=== PATIENT | female | born 1985 | race Native Hawaiian/Other Pacific Islander ===

== ENCOUNTER 2018-08-02 01:03 | Emergency (ER) | payer OTHER ==
[2018-08-02 01:10] VITALS: O2SAT 100
[2018-08-02] MEDS ORDERED: Oxycodone/Acetaminophen 5/325 mg Tab PO ONE (01:54)
--- NOTE | 2018-08-02 01:57 | ED PDOC ---
HPI: Back Time Seen by Provider: 08/02/18 01:45 Chief Complaint (Nursing): Back Pain Chief Complaint (Provider): low back pain History Per: Patient History/Exam Limitations: no limitations Onset/Duration Of Symptoms: Hrs Current Symptoms Are (Timing): Still Present Exacerbating Factor(s): Turning, Movement, Sitting, Standing Additional Complaint(s): 32 y/o female history of lspine disc herniation(s) brought in by EMS for evaluation of acute on chronic flare up. Patient states she re-injured her back at the gym 2 weeks ago and has been taking Naproxen every morning but states a few hours ago she was on the toilet pushing to have a bowel movement and felt something "move" in her back, which worsened the pain. Associated radiation down left leg. Denies fever, nausea/vomiting, weakness of extremities, bowel/bladder incontinence, dysuria, hematuria. Past Medical History Reviewed: Historical Data, Nursing Documentation, Vital Signs Vital Signs: Last Vital Signs Temp 97.9 F 08/02/18 01:08 Pulse 85 08/02/18 01:08 Resp 17 08/02/18 01:08 BP 122/86 08/02/18 01:08 Pulse Ox 100 08/02/18 01:08 - Medical History PMH: Back Problems, Bipolar Disorder - Surgical History Surgical History: No Surg Hx - Family History Family History: States: No Known Family Hx - Home Medications Home Medications: Ambulatory Orders Medication Instructions Recorded Cyclobenzaprine [Cyclobenzaprine 10 mg PO BID PRN #14 tab 08/02/18 HCl] traMADol [Ultram] 50 mg PO Q8 PRN #12 tab 08/02/18 - Allergies Allergies/Adverse Reactions: Allergies Allergy/AdvReac Type Severity Reaction Status Date / Time No Known Allergies Allergy Verified 08/02/18 01:10 Review of Systems ROS Statement: Except As Marked, All Systems Reviewed And Found Negative Musculoskeletal: Positive for: Back Pain Physical Exam - Reviewed Nursing Documentation Reviewed: Yes Vital Signs Reviewed: Yes - Physical Exam Appears: Positive for: Well, Non-toxic, Uncomfortable Head Exam: Positive for: ATRAUMATIC, NORMAL INSPECTION, NORMOCEPHALIC Skin: Positive for: Normal Color Back: Positive for: Vertebral Tenderness (lower lspine; no bony deformity, edema, skin changes noted), Decreased ROM (secondary to pain), Muscle Spasm (left lspine paravertebral tenderness. Left gluteal tenderness). Negative for: L CVA Tenderness, R CVA Tenderness Extremity: Positive for: Normal ROM Neurologic/Psych: Positive for: Alert, Oriented (x3). Negative for: Motor/Sensory Deficits - ECG O2 Sat by Pulse Oximetry: 100 - Other Rad lspine xray X-Ray: Viewed By Me X-Ray Interpretation: no acute findings - Progress ED Course And Treament: -lspine xray -toradol IM -percocet PO -flexeril PO On re-eval patient resting comfortably on stretcher; states pain improved. Patient educated on findings, discharged with rx Flexeril, Tramadol Advised to continue Naproxen Warm compresses Follow up PMD within 2-3 days Return precautions given Disposition - Clinical Impression Clinical Impression: Low back pain, Sciatica - Patient ED Disposition Is Patient to be Admitted: No Counseled Patient/Family Regarding: Studies Performed, Diagnosis, Need For Followup, Rx Given - Disposition Referrals: [facility] [Outside] Disposition: Routine/Home Disposition Time: 04:24 Condition: IMPROVED Prescriptions: Cyclobenzaprine [Cyclobenzaprine HCl] 10 mg PO BID PRN #14 tab PRN Reason: Muscle Spasm traMADol [Ultram] 50 mg PO Q8 PRN #12 tab PRN Reason: Pain, Moderate (4-7) Instructions: Low Back Pain in Adults, Sciatica Forms: [employer] (Icelandic)
[2018-08-02] MEDS ORDERED: Oxycodone/Acetaminophen 5/325 mg Tab ONE (02:10)
[2018-08-02 04:29] VITALS: BP 118/73; PULSE 86; RESP 18; TEMP 98.9
--- NOTE | 2018-08-02 12:51 | RAD ---
Date of service: 08/02/2018 PROCEDURE: Radiographs of the Lumbar Spine. HISTORY: injury, h/o disc herniations COMPARISON: No prior. FINDINGS: BONES: Normal alignment. No listhesis. No fracture. DISC SPACES: Unremarkable. OTHER FINDINGS: None. IMPRESSION: Unremarkable radiographs of the lumbar spine.
== END 2018-08-02 04:57 | disposition home or self-care (01) ==
LOC: H.ER 01:03
DX: M54.5 Low back pain (principal); M54.32 Sciatica, left side
CPT/HCPCS: 72100; 81025; 96372; 99283; J1885

== ENCOUNTER 2018-08-03 22:56 | Emergency (ER) | payer OTHER ==
[2018-08-03] MEDS ORDERED: Naproxen 500 MG TAB PO STA (23:56)
[2018-08-04] MEDS ORDERED: Naproxen 500 MG TAB PO ONE (00:08)
--- NOTE | 2018-08-04 00:22 | ED PDOC ---
HPI: Neurologic - General Time Seen by Provider: 08/03/18 23:43 Chief Complaint (Nursing): Weakness/Neurological Deficit Chief Complaint (Provider): Weakness/Neurological Deficit Source: patient Exam Limitations: no limitations - History of Present Illness Timing/Duration: 24 hours Associated Symptoms: numbness in legs/feet (left leg), other (numbness to pelvis) Allergies/Adverse Reactions: Allergies No Known Allergies Allergy (Verified 08/03/18 23:22) Home Medications: Ambulatory Orders Cyclobenzaprine [Cyclobenzaprine HCl] 10 mg PO BID PRN #14 tab 08/02/18 traMADol [Ultram] 50 mg PO Q8 PRN #12 tab 08/02/18 Additional Complaint(s): 32 y/o female with history of herniated disc presents to ER for the second time in 24 hours for evaluation of worsening left leg and pelvic numbness. Patient reports she felt improved symptoms after medication she received here in the ED last night but worsened today. She states she is unable to have bowel movement but has no problem with urination. Patient is ambulatory on her own. She denies any recent trauma or infection. PMD: non provided Past Medical History Reviewed: Historical Data, Nursing Documentation, Vital Signs Vital Signs: Last Vital Signs Temp 98.3 F 08/03/18 23:22 Pulse 118 H 08/03/18 23:22 Resp 20 08/03/18 23:22 BP 116/88 08/03/18 23:22 Pulse Ox 97 08/03/18 23:22 - Medical History PMH: Back Problems, Bipolar Disorder - Surgical History Surgical History: No Surg Hx - Family History Family History: States: Unknown Family Hx - Home Medications Home Medications: Ambulatory Orders Medication Instructions Recorded Cyclobenzaprine [Cyclobenzaprine 10 mg PO BID PRN #14 tab 08/02/18 HCl] traMADol [Ultram] 50 mg PO Q8 PRN #12 tab 08/02/18 - Allergies Allergies/Adverse Reactions: Allergies Allergy/AdvReac Type Severity Reaction Status Date / Time No Known Allergies Allergy Verified 08/03/18 23:22 Review of Systems ROS Statement: Except As Marked, All Systems Reviewed And Found Negative Neurological: Positive for: Numbness (to left leg and pelvis). Negative for: Other (Recent trauma or infection) Physical Exam - Reviewed Nursing Documentation Reviewed: Yes Vital Signs Reviewed: Yes - Physical Exam Appears: Positive for: Non-toxic, No Acute Distress Head Exam: Positive for: ATRAUMATIC, NORMOCEPHALIC Skin: Positive for: Normal Color, Warm, Dry Neck: Positive for: Normal (no C-spine tenderness), Painless ROM, Supple Cardiovascular/Chest: Positive for: Regular Rate, Rhythm. Negative for: Murmur Respiratory: Positive for: Normal Breath Sounds. Negative for: Wheezing Gastrointestinal/Abdominal: Positive for: Normal Exam. Negative for: Tenderness Back: Positive for: Normal Inspection. Negative for: L CVA Tenderness, R CVA Tenderness, Other (Spine Tenderness) Neurologic/Psych: Positive for: Alert, Oriented (x3), Other (Mild weakness when standing on left leg. Full sensation of thighs and feet medially and laterally. No weakness on right leg with standing.) - ECG O2 Sat by Pulse Oximetry: 97 (RA) Pulse Ox Interpretation: Normal Medical Decision Making Medical Decision Making: Time: 2340 A/P: workup for worsening left leg and pelvic numbness --Image from yesterday shows no abnormality --CT of lumbar spine ordered --Flexeril and Naproxen for pain [id number] Findings: Straightening of the lumbar lordosis. There are diffuse spondylotic changes. Findings are demonstrated by disc space narrowing, osteophyte formation and degenerative endplate changes. Facet joint arthropathy is noted. No fracture or dislocation is seen. No aggressive bone lesion is noted. At L5-S1, mild diffuse disc bulge. Bilateral facet joint arthropathy. The spinal canal is not narrowed. Mild bilateral neural foramina narrowing. At L4-L5, moderate diffuse disc bulge. Superimposed left paracentral/posterolateral disc extrusion measuring 8.4 mm significant impinge ment on the thecal sac and exiting left L5 nerve root. Bilateral facet arthropathy and ligamentum flavum hypertrophy. The spinal canal is moderately narrowed. Moderate bilateral neural foramina narrowing. At L3-L4, moderate diffuse disc bulge. Superimposed broad-based central/left paracentral disc protrusion measuring 3.8 mm. Bilateral facet arthropathy and ligamentum flavum hypertrophy. The spinal canal and bilateral foramina narrowing. At L2-L3, mild diffuse disc bulge. The spinal canal is not narrowed. Mild bilateral neural foramina narrowing. At L1-L2, mild diffuse disc bulge. The spinal canal is not narrowed. Mild bilateral neural foramina narrowing. IMPRESSION: Spondylosis. Multilevel degenerative disc disease more prominent at L4-L5. 0416 CT reviewed and shows no significant abnormality. Patient reports improvement in symptoms and is medically stable for discharge. ----- Scribe Attestation: Documented by Shruti Ware, acting as a scribe for Viola Hatch MD. Provider Scribe Attestation: All medical record entries made by the Scribe were at my direction and personally dictated by me. I have reviewed the chart and agree that the record accurately reflects my personal performance of the history, physical exam, medical decision making, and the department course for this patient. I have also personally directed, reviewed, and agree with the discharge instructions and disposition. Disposition - Clinical Impression Clinical Impression: Spondylosis - Patient ED Disposition Is Patient to be Admitted: No - Disposition Disposition: Routine/Home Disposition Time: 04:16 Condition: STABLE Forms: [employer] (Bengali)
[2018-08-04 04:23] VITALS: BP 111/74; PULSE 91; RESP 18; O2SAT 100
[2018-08-04 04:56] VITALS: TEMP 98.2
--- NOTE | 2018-08-04 11:34 | CT ---
Date of service: 08/04/2018 PROCEDURE: CT Lumbar Spine without contrast HISTORY: Leg and pelvic weakness COMPARISON: Correlation made with concurrent radiographs of the lumbar spine TECHNIQUE: Axial computed tomography images were obtained of the lumbar spine without the use of intravenous contrast. Coronal and sagittal reformatted images were created and reviewed. Radiation dose: Total exam DLP = 995.71 mGy-cm. This CT exam was performed using one or more of the following dose reduction techniques: Automated exposure control, adjustment of the mA and/or kV according to patient size, and/or use of iterative reconstruction technique. FINDINGS: VERTEBRAE: There are no acute compression fractures nor retropulsed fragments. Vertebral bodies exhibit normal stature. Mild straightening of the normal lumbar lordosis. Vertebral bodies and facets otherwise normally aligned. DISCS/SPINAL CANAL/NEURAL FORAMINA: L1-2: Unremarkable. L2-3: Adequate disc height. Minor broad-based bulge of the posterior annulus. Disc results in mild broad-based flattening of the thecal sac. L3-4: At there is relatively adequate disc height. Small central and bilateral the (left larger than right) focal disc protrusion compresses the ventral surface of the thecal sac however the overall appears marginal to adequate. L4-5: Disc space narrowing more so along the anterior disc margin with endplate eburnation. There is a large central and bilateral (left slightly larger than right) extruded disc herniation which compresses the ventral surface of the thecal sac and presumably compresses the intrathecal nerve roots of the cauda equina and particularly the intrathecal and probably just exited L4 nerve roots. There may also be posterior displacement of the intrathecal L5 nerve roots.. The disc also extends inferiorly over short distance within the canal the overall central canal is narrowed.. Facets are prominent. Disc extends proximal inferior margins of the exit foramina. L5-S1: Disc space narrowing with small osteophytic ridge disc bulge complex. Disc appears to reach the the ventral surfaces of the descending S1 nerve roots. PARASPINAL SOFT TISSUES: Unremarkable. OTHER FINDINGS: None. IMPRESSION: No evidence of acute fractures. There is a large on central and bilateral extruded disc herniation at L4-L5 level which results in significant compressive effects on the ventral surface of the thecal sac as described. Small focal central and bilateral disc protrusion L4-L5 level which also compresses the ventral surface of the thecal sac. Consider follow-up MRI for further evaluation.
== END 2018-08-04 04:55 | disposition home or self-care (01) ==
LOC: H.ER 22:56
DX: M47.812 Spondylosis without myelopathy or radiculopathy, cervical region (principal)